=== PATIENT | male | born 1995 | race African-American/Black ===

== ENCOUNTER 2018-07-03 10:33 | Emergency (ER) | payer OTHER ==
[~2018-07-03] VITALS: Ht 190.5 cm; Wt 100.0 kg
[2018-07-03 10:37] VITALS: BP 131/90
== END 2018-07-03 14:11 | disposition home or self-care (01) ==
LOC: EMS 10:42
DX: S93.401A Sprain of unspecified ligament of right ankle, initial encounter (principal); F17.210 Nicotine dependence, cigarettes, uncomplicated; W01.0XXA Fall on same level from slipping, tripping and stumbling without subsequent striking against object, initial encounter; Y93.89 Activity, other specified; Y92.62 Dock or shipyard as the place of occurrence of the external cause; Y99.0 Civilian activity done for income or pay
CPT/HCPCS: 29515

== ENCOUNTER 2018-07-10 12:47 | Emergency (ER) | payer SELFPAY ==
[~2018-07-10] VITALS: Ht 188 cm; Wt 115.9 kg
[2018-07-10 13:55] VITALS: BP 140/87
== END 2018-07-10 14:42 | disposition home or self-care (01) ==
LOC: EMS 12:48
DX: S93.401D Sprain of unspecified ligament of right ankle, subsequent encounter (principal); R03.0 Elevated blood-pressure reading, without diagnosis of hypertension; X50.1XXD Overexertion from prolonged static or awkward postures, subsequent encounter

== ENCOUNTER 2018-07-16 20:57 | Emergency (ER) | payer SELFPAY ==
[~2018-07-16] VITALS: Ht 188 cm; Wt 115.9 kg
[2018-07-16] MEDS ORDERED: ONDANSETRON HCL 4 MG/2 ML VIAL IVP ONE (21:45)
[2018-07-16] MEDS ORDERED: KETOROLAC TROMETHAMINE 60 MG/2 ML VIAL IM ONE (21:45)
[2018-07-16] MEDS ORDERED: SODIUM CHLORIDE 0.9% 1,000 ML IV ONE (21:45)
[2018-07-16] MEDS ORDERED: KETOROLAC TROMETHAMINE 30 MG/ML VIAL IVP ONE (21:45)
[2018-07-16 21:52] LABS: INFLUENZA TYPE A NEGATIVE FOR TYPE A (NEGATIVE); INFLUENZA TYPE B NEGATIVE FOR TYPE B (NEGATIVE)
[2018-07-16 22:04] LABS: BASOPHILS % (AUTO) 0.4 % (0.0-2.0); EOSINOPHILS % (AUTO) 2.1 % (1.0-6.0); HEMATOCRIT 40.6 % (41-53); LYMPHOCYTES # (AUTO) 1.3 K/uL (1.0-4.8); LYMPHOCYTES % (AUTO) 11.2 % (22.0-44.0); MEAN CORPUSCULAR HEMOGLOBIN 29.7 pg (26.0-34.0); MEAN CORPUSCULAR HGB CONC 34.4 G/dL (31.0-37.0); MEAN CORPUSCULAR VOLUME 86 fL (80-100); MONOCYTES # (AUTO) 0.6 K/uL (0.1-1.0); MONOCYTES % (AUTO) 5.3 % (2.0-9.0); NEUTROPHILS # (AUTO) 9.5 K/uL (1.8-7.7); PLATELET COUNT (AUTO) 165 K/uL (150-450); RED BLOOD CELL COUNT(AUTO) 4.71 MIL/uL (4.50-5.90)
[2018-07-16 22:12] LABS: ANION GAP 8 mmol/L (8-16); CALCIUM, TOTAL 8.7 mg/dL (8.8-10.5); CARBON DIOXIDE 28 mmol/L (22-29); CHLORIDE 100 mmol/L (98-107); CREATININE 1.08 mg/dL (0.60-1.30); GLOMERULAR FILTR. RATE CALC > 60 mL/min (>60); GLUCOSE,RANDOM 105 mg/dL (70-110); POTASSIUM 3.7 mmol/L (3.5-5.1); SODIUM SERUM 136 mmol/L (136-145); UREA NITROGEN, BLOOD 6 mg/dL (7-18)
[2018-07-16 22:17] LABS: ALANINE AMINOTRANSFERASE 78 U/L (12-78); ALBUMIN 3.9 g/dL (3.4-5.0); ALKALINE PHOSPHATASE 128 U/L (46-116); ASPARTATE AMINOTRANSFERASE 50 U/L (15-37); BILIRUBIN,TOTAL 0.6 mg/dL (0.1-1.0)
[2018-07-16] MEDS ORDERED: OSELTAMIVIR PHOSPHATE 75 MG CAPSULE PO ONE (22:45)
[2018-07-16 22:50] VITALS: BP 134/81
[2018-07-16] MEDS ORDERED: ACETAMINOPHEN 500 MG TABLET PO ONE (23:00)
== END 2018-07-16 23:06 | disposition home or self-care (01) ==
LOC: EMS 20:58
DX: J11.1 Influenza due to unidentified influenza virus with other respiratory manifestations (principal); Z91.013 Allergy to seafood
CPT/HCPCS: 36415; 80053; 85025; 87804; 96361; 96372; 96374; 99284; J1885; J2405; J7030

== ENCOUNTER 2018-07-31 10:25 | Emergency (ER) | payer OTHER ==
[~2018-07-31] VITALS: Ht 190.5 cm; Wt 116.4 kg
[2018-07-31 12:16] VITALS: BP 137/84
== END 2018-07-31 12:18 | disposition home or self-care (01) ==
LOC: EMS 10:26
DX: M21.42 Flat foot [pes planus] (acquired), left foot (principal); M21.41 Flat foot [pes planus] (acquired), right foot; R03.0 Elevated blood-pressure reading, without diagnosis of hypertension; Z91.013 Allergy to seafood

== ENCOUNTER 2023-04-23 18:36 | Emergency (ER) | payer OTHER ==
[~2023-04-23] VITALS: Ht 190.5 cm; Wt 130.4 kg
[2023-04-23 18:42] VITALS: RESP 18
[2023-04-23 19:27] VITALS: BP 135/70; PULSE 88; TEMP 97.9
== END 2023-04-23 19:44 | disposition home or self-care (01) ==
LOC: EMS 19:25
DX: S60.212A Contusion of left wrist, initial encounter (principal); Z91.013 Allergy to seafood; Y08.89XA Assault by other specified means, initial encounter; Y93.89 Activity, other specified; Y92.89 Other specified places as the place of occurrence of the external cause; Y99.8 Other external cause status
CPT/HCPCS: 99281; Z7502